=== PATIENT | female | born 1995 | race Caucasian/White ===

== ENCOUNTER 2016-04-24 17:25 | Emergency (ER) | payer BC, OTHER ==
[~2016-04-24] VITALS: Ht 152.4 cm; Wt 92.8 kg
[~2016-04-24 17:25] MED LIST: HYDRELX3 PO
[2016-04-24 17:34] VITALS: TEMP 36.7; Ht 152.4 cm; Wt 92.8 kg
[2016-04-24] MEDS ORDERED: TRAZ50TA35 PO (17:56)
[2016-04-24] MEDS ORDERED: OXYCODONE/ACETAMINOPHEN 5-325 TAB PO STA (18:03)
[2016-04-24 18:33] LABS: BASO % 0.2 %; BASO ABS # 0.02 K/uL (0-0.2); COMPLETE YES; EOS % 0.9 %; HEMATOCRIT 38.5 % (37-47); IG% 0.1 %; LYMPH % 42.4 %; LYMPH ABS # 4.13 K/uL (1.2-3.4); MEAN CELL VOLUME 77.5 fL (80-100); MEAN CORPUSCULAR HEMOGLOBIN 25.4 pg (25-34); MEAN CORPUSCULAR HGB CONC 32.7 g/dl (32-36); MEAN PLATELET VOLUME 9.2 fL (7.4-10.4); NEUT % 53.4 %; PLATELET COUNT 389 K/uL (130-400); RED BLOOD COUNT 4.97 M/uL (4.2-5.4); WHITE BLOOD COUNT 9.73 K/uL (4.8-10.8)
[2016-04-24 18:54] LABS: BUN/CREATININE RATIO 12.5 (10-20); CALCIUM 8.8 mg/dl (8.5-10.1); CREATININE 0.79 mg/dl (0.60-1.20); POTASSIUM 3.6 mmol/L (3.5-5.1)
[2016-04-24 18:55] LABS: BENZODIAZEPINE, URINE NEG (NEG); COCAINE,URINE NEG (NEG); PHENCYCLIDINE, URINE NEG (NEG)
[2016-04-24 18:59] LABS: MANUAL MICROSCOPIC REQUIRED? NO; REVIEW REQ? NO; URINE APPEARANCE CLEAR (CLEAR); URINE BILIRUBIN NEG (NEG); URINE COLOR YELLOW; URINE EPITHELIAL CELL AUTO >30 /lpf (0-5); URINE NITRITE NEG (NEG); URINE PH 6.5 (4.5-7.5); UROBILINOGEN NEG (NEG); ZZUR CULT IF INDIC CLEAN CATCH YES
--- NOTE | 2016-04-24 19:04 | DIAGNOSTIC IMAGING REPORT ---
LEFT FEMUR 4 VIEWS ROUTINE CLINICAL HISTORY: Left femur pain status post trauma COMPARISON: None. DISCUSSION: No fractures or dislocations are visualized. IMPRESSION: No fractures identified. Electronically signed by: Jomar Holland M.D. 04/24/2016 7:03 PM Dictated Date/Time: 04/24/2016 7:02 PM
--- NOTE | 2016-04-24 19:07 | EMERGENCY ROOM VISIT NOTE ---
History First contact with patient: 17:44 Chief Complaint: FALL Stated Complaint: SEVERE BACK PAIN FROM FALLING History of Present Illness The patient is a 20 year old female who presents to the Emergency Room via private vehicle accompanied by mother and with complaints of "severe back pain from falling". The patient states that she fell 2 weeks ago while at work, which is [place] [facility]. She states that she is been going to occupational health in [place] for this fall. She states they have been trying to figure out why she is in pain. She notes that today they took a urine sample to check for problems with the kidneys and told her that she had an infection in the urine and throughout her body and told her to go to the emergency department. The patient is concerned about this. She states that she has had x-rays of her tailbone revealed no fractures. She points to the mid back down to the tailbone region extending into the gluteal muscles bilaterally and into the thighs as a location of her pain. She notes that the fall occurred while going down wooden steps that were slippery. She also would like to be evaluated for the knee pain that she's been experiencing for 3 months now. She denies any abdominal pain, loss of consciousness, striking her head, dysuria, hematuria, vaginal discharge, history of tick bites, injury since her previous fall. She denies any lower extremity weakness, bowel or bladder incontinence, or numbness or tingling in genital region. She rates the pain as a 7.5 in the low back that is worse after working. There are no urinary symptoms. Review of Systems A complete 10-point Review of Systems was discussed with the patient, with pertinent positives and negatives listed in the History of Present Illness. All remaining Review of Systems questions can be considered negative unless otherwise specified. Past Medical/Surgical History Gestational diabetes, pneumonia, gallbladder, Family History Diabetes, heart disease, high blood pressure, gallbladder disease, kidney disease or stones. Social History Smoking Status: Never Smoker Social History: Patient was at home with and 2 kids. She denies alcohol or tobacco products. Current/Historical Medications Scheduled Trazodone Hcl (Trazodone), 50 MG PO HS Allergies Coded Allergies: Morphine (Verified Allergy, Intermediate, Hives, 04/24/16) Physical Exam Vital Signs Date Time Temp Pulse Resp B/P Pulse Ox O2 Delivery O2 Flow Rate FiO2 04/24/16 19:49 87 18 118/63 98 04/24/16 17:34 36.7 109 18 117/78 98 Room Air Physical Exam VITAL SIGNS - Vital signs and nursing notes were reviewed. Patient is afebrile , she is normotensive, she is slightly tachycardic at 109, and is saturating well on room air at 98%. GENERAL -20-year-old female appearing her stated age who is in no acute distress. Communicates well with provider and answers questions appropriately. SKIN - Without rashes. No breaks in the integument. HEAD - NC/AT. EYES - PERRL with EOMI bilaterally. Sclera anicteric. Palpebral conjunctiva pink and moist with no injection noted. EARS - No deformities of external structures noted on gross examination bilaterally. No pain elicited with palpation of the tragus bilaterally. External auditory canals without discharge or otorrhea. Tympanic membranes pearly agrawal without retraction or bulging. No fluid or purulent material visualized behind the TM. Handle of malleus, umbo, cone of light, pars tensa/ flaccid all easily visualized. NOSE - Midline and without cyanosis. No epistaxis or purulent drainage noted. MOUTH/OROPHARYNX - Without perioral cyanosis. Buccal mucosa pink and moist and without leukoplakia. NECK - Neck with FROM. Supple to palpation. No C-spine tenderness. LUNGS - Chest wall symmetric without accessory muscle use, intercostals retractions, or central cyanosis. Normal vesicular breath sounds CTA B/L. No wheezes, rales, or rhonchi appreciated. CARDIAC - RRR with S1/S2. No murmur, rubs, or gallops appreciated. ABDOMEN - Abdominal contour without pulsations or visible masses. BS normoactive all four quadrants. No tenderness, palpable masses, hepatosplenomegaly, or ascites noted. EXTREMITIES - No clubbing or peripheral cyanosis. No pretibial edema present. + 5/5 strength noted in UE/LE bilaterally. MUSCULOSKELETAL: There is tenderness to palpation overlying the inferior thoracic, lumbar, sacrum, bilateral hip and anterior thigh regions. No palpable step-off or bony abnormalities noted. NEUROLOGIC - Cranial nerves II through XII grossly intact. Sensory intact to light touch throughout. Patellar reflexes +2/4. PSYCH - A&Ox3 and cooperates fully with examiner. Pt is very pleasant and interacts well with examiner. Medical Decision & Procedures ER Provider Diagnostic Interpretation: THORACIC SPINE 3 VIEWS ROUTINE CLINICAL HISTORY: Thoracic spine pain status post trauma COMPARISON STUDY: No previous studies for comparison. FINDINGS: The paraspinal line is not displaced. No acute fractures or subluxations are visualized. IMPRESSION: No fractures or subluxations identified. Electronically signed by: Jomar Holland M.D. 04/24/2016 7:06 PM Dictated Date/Time: 04/24/2016 7:05 PM L-SPINE MIN 4 VIEWS ROUTINE CLINICAL HISTORY: Back pain status post trauma COMPARISON STUDY: No previous studies for comparison. FINDINGS: There is no pathologic bowel dilatation. There are surgical clips in the right upper quadrant consistent with a prior cholecystectomy. There are 5 lumbar type vertebral bodies present. No fractures or subluxations are visualized. IMPRESSION: No fractures or subluxations identified. Electronically signed by: Jomar Holland M.D. 04/24/2016 7:04 PM Dictated Date/Time: 04/24/2016 7:03 PM PELVIS 1 OR 2 VIEW ROUTINE CLINICAL HISTORY: Pelvic pain status post trauma COMPARISON STUDY: No previous studies for comparison. FINDINGS: No fractures are visualized. There are no dislocations. IMPRESSION: No fractures identified. Electronically signed by: Jomar Holland M.D. 04/24/2016 7:04 PM Dictated Date/Time: 04/24/2016 7:04 PM LEFT FEMUR 4 VIEWS ROUTINE CLINICAL HISTORY: Left femur pain status post trauma COMPARISON: None. DISCUSSION: No fractures or dislocations are visualized. IMPRESSION: No fractures identified. Electronically signed by: Jomar Holland M.D. 04/24/2016 7:03 PM Dictated Date/Time: 04/24/2016 7:02 PM RIGHT FEMUR 4 VIEWS ROUTINE CLINICAL HISTORY: Right femur pain status post trauma COMPARISON: None. DISCUSSION: No fractures or dislocations are visualized. A lucency through the lesser trochanter is felt to be developmental. IMPRESSION: No fractures or dislocations identified. Electronically signed by: Jomar Holland M.D. 04/24/2016 7:05 PM Dictated Date/Time: 04/24/2016 7:04 PM Laboratory Results 04/24/16 18:20 Red Blood Count 4.97, Mean Corpuscular Volume 77.5, Mean Corpuscular Hemoglobin 25.4, Mean Corpuscular Hemoglobin Concent 32.7, Mean Platelet Volume 9.2, Neutrophils (%) (Auto) 53.4, Lymphocytes (%) (Auto) 42.4, Monocytes (%) (Auto) 3.0, Eosinophils (%) (Auto) 0.9, Basophils (%) (Auto) 0.2, Neutrophils # (Auto) 5.19, Lymphocytes # (Auto) 4.13, Monocytes # (Auto) 0.29, Eosinophils # (Auto) 0.09, Basophils # (Auto) 0.02 04/24/16 18:20 Test 04/24/16 00:00 04/24/16 18:03 04/24/16 18:08 04/24/16 18:15 Urine Color YELLOW Urine Appearance CLEAR (CLEAR) Urine pH 6.5 (4.5-7.5) Urine Specific [place] 1.010 (1.000-1.030) Urine Protein NEG (NEG) Urine Glucose (UA) NEG (NEG) Urine Ketones NEG (NEG) Urine Occult Blood NEG (NEG) Urine Nitrite NEG (NEG) Urine Bilirubin NEG (NEG) Urine Urobilinogen NEG (NEG) Urine Leukocyte Esterase LARGE (NEG) Urine WBC (Auto) >30 /hpf (0-5) Urine RBC (Auto) 0-4 /hpf (0-4) Urine Hyaline Casts (Auto) 1-5 /lpf (0-5) Urine Epithelial Cells (Auto) >30 /lpf (0-5) Urine Bacteria (Auto) 1+ (NEG) Urine Opiates Screen NEG (NEG) Urine Methadone, Qualitative NEG (NEG) Urine Barbiturates NEG (NEG) Urine Phencyclidine (PCP) Level NEG (NEG) Ur Amphetamine/Methamphetamine NEG (NEG) MDMA (Ecstasy) Screen NEG (NEG) Urine Benzodiazepines Screen NEG (NEG) Urine Cocaine Metabolite NEG (NEG) Urine Marijuana (THC) NEG (NEG) Test 04/24/16 18:20 White Blood Count 9.73 K/uL (4.8-10.8) Red Blood Count 4.97 M/uL (4.2-5.4) Hemoglobin 12.6 g/dL (12.0-16.0) Hematocrit 38.5 % (37-47) Mean Corpuscular Volume 77.5 fL (80-100) Mean Corpuscular Hemoglobin 25.4 pg (25-34) Mean Corpuscular Hemoglobin Concent 32.7 g/dl (32-36) Platelet Count 389 K/uL (130-400) Mean Platelet Volume 9.2 fL (7.4-10.4) Neutrophils (%) (Auto) 53.4 % Lymphocytes (%) (Auto) 42.4 % Monocytes (%) (Auto) 3.0 % Eosinophils (%) (Auto) 0.9 % Basophils (%) (Auto) 0.2 % Neutrophils # (Auto) 5.19 K/uL (1.4-6.5) Lymphocytes # (Auto) 4.13 K/uL (1.2-3.4) Monocytes # (Auto) 0.29 K/uL (0.11-0.59) Eosinophils # (Auto) 0.09 K/uL (0-0.5) Basophils # (Auto) 0.02 K/uL (0-0.2) RDW Standard Deviation 46.5 fL (36.4-46.3) RDW Coefficient of Variation 16.5 % (11.5-14.5) Immature Granulocyte % (Auto) 0.1 % Immature Granulocyte # (Auto) 0.01 K/uL (0.00-0.02) Anion Gap 10.0 mmol/L (3-11) Est Creatinine Clear Calc Drug Dose 116.5 ml/min Estimated GFR () 125.8 Estimated GFR (Non- 108.5 BUN/Creatinine Ratio 12.5 (10-20) Calcium Level 8.8 mg/dl (8.5-10.1) Medications Administered Medications (Trade) Dose Ordered Sig/Tori Route Start Time Stop Time Status Last Admin Dose Admin Oxycodone/ Acetaminophen (Percocet 5-325mg Tab) 1 tab NOW STAT PO 04/24/16 18:03 04/24/16 18:08 DC 04/24/16 18:16 1 TAB Medical Decision Patient was seen and evaluated as above. After obtaining a thorough history and physical examination IV access obtained and a CBC, PRP, Lyme screen, UA clean catch culture if indicated, T-spine, L-spine, pelvis, lateral femur radiographs. These was obtained secondary to subjective and objective examination findings. She was given 1 Percocet tablet per request for her pain. Urine was also obtained as well as urine drug profile. I suspect the patient had a urinalysis done that showed questionable infection likely causing her concern. CBC reveals no leukocytosis or anemia. Slight chloride elevation. Urine reveals large leukocyte, greater than 30 white blood cells but evidence of contaminated sample with greater than 30 epithelial cells 1+ urine bacteria. This will be sent to culture and the patient was informed that if it grows bacteria she'll be notified and placed on antibiotics. Radiographs as above and were negative for acute process. These were reviewed with the patient. Small lucency discussed with the patient. She is to follow up regarding this. She is to follow up regarding her pain in the back. I did give her a service desk specialist number to follow-up with. She was happy with plan of care and was given 1 Percocet while she was educated upon worrisome symptoms which to return, had questions answered prior to discharge, and was discharged home in good condition. She is to obtain a family doctor, likely the one that her mother goes to. The lab called after the patient was discharged and noted that there was not inappropriate blood sample for the Lyme to be run. I was informed by Negro Lundy the RN general supervisor. The patient was called and a message was left by him to inform her of what happened. If she calls back we will hopefully draw the blood tonight or if not I will write a prescription for her to have this done in the outpatient setting. In evaluation treatment this patient following differential diagnoses were entertained: UTI, pyelonephritis, spinal fracture, contusion, among others. I do not suspect a UTI as the patient did not have any symptoms rather only slight indication on urine which will be cultured. No evidence of polynephritis. Impression Primary Impression: Fall Additional Impression: Contusion of multiple sites Departure Information Dispostion Home / Self-Care Condition GOOD Referrals No Doctor, Assigned (PCP) Will Pugh, DO Patient Instructions My [facility] Additional Instructions You have been treated in the Emergency Department for Back Pain. You have received pain medicine in the emergency department which impairs your ability to operate a vehicle. It is illegal for you to drive after receiving these medicines. Please have your urine repeated with your family doctor. We are sending this for culture you may be notified in 48 hours if it grows any bacteria as we discussed. If you develop worsening back pain, fevers, chills, vomiting or any new/ concerning symptoms please return the emergency room immediately. For pain control, you can use the following [id number] medicines (if >12 yo): - Regular strength (325mg/tab) Tylenol (acetaminophen) 2 tabs every 4-6 hours as needed. Do not exceed 12 tablets in a 24 hour period. Avoid taking more than 4 grams (4000 mg) of Tylenol per day. This includes any other sources of acetaminophen you may take on a regular basis. - Regular strength (200 mg/tab) Advil (ibuprofen) 1-2 tabs every 4-6 hours as needed. Do not exceed a dose of 3200 mg per day. If this is an acute injury, ice can be applied to the area of pain for the first 3 days to help decrease pain and inflammation. After the first 3 days, a heating pad can be used over the area for continued soothing relief. You should schedule a follow-up appointment in 2-3 days with your Primary Care Provider for further evaluation and treatment of your back pain. I have listed the number for orthopedic service desk specialist it is recommended to call their office tomorrow to schedule follow-up. Please discuss with her employer the approved Workmen[employer] orthopedic group. Return to the Emergency Department if your current symptoms worsen despite treatment course outlined above, or if you develop any of the following symptoms : intractable pain despite aforementioned treatment course, loss of control of your bowel or bladder, numbness or tingling in your groin, or development of a fever. Please follow-up with family doctor for the lucency through the lesser trochanter that is felt to be developmental. Please return to the emergency department with any new/concerning symptoms. Problem Qualifiers Primary Impression: Fall Encounter type: initial encounter Qualified Codes: W19.XXXA - Unspecified fall, initial encounter
[2016-04-24 19:49] VITALS: BP 118/63; PULSE 87; O2SAT 98
== END 2016-04-24 19:50 | disposition home or self-care (01) ==
LOC: C.EDB 17:28 → C.EDD 19:50
DX: T14.8 Other injury of unspecified body region (principal); W19.XXXA Unspecified fall, initial encounter; Y99.0 Civilian activity done for income or pay; Z87.01 Personal history of pneumonia (recurrent); Z83.3 Family history of diabetes mellitus; Z82.49 Family history of ischemic heart disease and other diseases of the circulatory system